=== PATIENT | male | born 1970 | race Caucasian/White ===

== ENCOUNTER 2020-06-14 14:02 | Day surgery (SDC) | payer BC ==
[~2020-06-14] VITALS: Ht 175.3 cm; Wt 125.0 kg
[2020-06-14] MEDS ORDERED: SODIUM CHLORIDE 0.9% 1,000 ML IV SCH (14:30)
[2020-06-14 14:34] VITALS: BP 135/90
[2020-06-14] MEDS ORDERED: MIDAZOLAM 1 MG/ML, 5ML ONE (14:53)
[2020-06-14] MEDS ORDERED: FENTANYL PF 100 MCG/2ML ONE (14:53)
[2020-06-14] MEDS ORDERED: CEFAZOLIN PMX 1GM/50ML 50 ML ONE ×2 (14:53→15:00)
[2020-06-14] MEDS ORDERED: LIDOCAINE 2%, 20ML ONE (14:53)
[2020-06-14] MEDS ORDERED: SPIR25TA5 PO (14:54)
[2020-06-14] MEDS ORDERED: CARV25TA12 PO (14:54)
[2020-06-14] MEDS ORDERED: CEFAZOLIN 1,000 MG ONE (14:54)
[2020-06-14] MEDS ORDERED: LISI-170 PO (14:54)
[2020-06-14] MEDS ORDERED: FURO20TA3 PO (14:54)
[2020-06-14 15:17] LABS: ANION GAP 5 mmol/L (5-15); CALCIUM 8.8 mg/dL (8.5-10.1); CHLORIDE 108 mmol/L (98-107)
[2020-06-14 15:18] LABS: CREATININE 0.94 mg/dL (0.7-1.3)
[2020-06-14 15:25] LABS: BASOPHILS % (AUTO) 1 % (0-1); EOSINOPHILS % (AUTO) 2 % (1-7); LYMPHOCYTES % (AUTO) 28 % (22-44); MEAN CORPUSCULAR HEMOGLOBIN 31.4 pg (27.5-34.5); MEAN CORPUSCULAR HGB CONC 34.1 g/dL (33.2-36.2); MEAN PLATELET VOLUME 9.4 fL (7.4-10.4); MONOCYTES % (AUTO) 9 % (2-9); NEUTROPHILS % (AUTO) 61 % (42-75); PLATELET COUNT 216 x10^3/uL (130-400); RED BLOOD COUNT 5.03 x10^6/uL (4.38-5.82); RED CELL DISTRIBUTION WIDTH 13.5 % (9.4-14.8)
[2020-06-14 15:28] LABS: MD NO
[2020-06-14] MEDS ORDERED: DIPHENHYDRAMINE 50 MG/ML, 1ML ONE (15:30)
[2020-06-14] MEDS ORDERED: LIDOCAINE 1%, 20ML ONE (15:30)
[2020-06-14 15:33] LABS: INTERNATIONAL NORMALIZED RATIO 1.05 (0.93-1.1); PROTHROMBIN TIME 11.2 Seconds (9.6-11.5)
[2020-06-14 16:36] VITALS: BP 133/91
[2020-06-14 20:15] VITALS: BP 135/85
== END 2020-06-14 20:25 | disposition home or self-care (01) ==
LOC: CACL 14:02 → 5SO 16:31 → CACL 20:25
PROVIDERS: ATTEND Internal Medicine Clinical Cardiac Electrophysiology
DX: Z45.02 Encounter for adjustment and management of automatic implantable cardiac defibrillator (principal); I42.8 Other cardiomyopathies; F15.10 Other stimulant abuse, uncomplicated; E66.9 Obesity, unspecified; Z68.41 Body mass index [BMI] 40.0-44.9, adult; Z79.01 Long term (current) use of anticoagulants; Z79.82 Long term (current) use of aspirin; Z79.899 Other long term (current) drug therapy
CPT/HCPCS: 33263; 36415; 80048; 85025; 85610; 93005; 99156; 99157; C1721; J0690; J1200; J2250; J3010; G0378